=== PATIENT | female | born 1955 | race Caucasian/White ===

== ENCOUNTER 2020-05-30 08:35 | Inpatient (IN) | payer OTHER ==
[2020-05-26 15:22] VITALS: BMI 27.6
--- NOTE | 2020-05-30 08:02 | HP ---
Satellite [facility] - Chief Complaint Chief Complaint: right hip pain - Past Medical History Allergies/Adverse Reactions: Allergies Allergy/AdvReac Type Severity Reaction Status Date / Time risedronate sodium Allergy Severe Difficulty Verified 05/26/20 15:12 Breathing - Current Medications Current Medications: Home Medications Medication Instructions Recorded Amlodipine Besylate 2.5 mg PO DAILY 05/26/20 Levothyroxine [Synthroid -] 75 mcg PO DAILY 05/26/20 Pramipexole Di-HCl [Pramipexole 0.125 mg PO HS 05/26/20 Dihydrochloride] Pravastatin Sodium 10 mg PO DAILY 05/26/20 Tramadol HCl 50 mg PO HS 05/26/20 Satellite Physical Exam - Physical Examination General Appearance: Well Nourished, Well Developed, Alert & Oriented x3 ENT: Clear Lung: Normal air movement Extremities: Other (right hip- + ttp, dec rom , nvi, xrays show grade 4 hip djd) Neurological: Intact, Alert, Oriented Satellite Impression/Plan - Impression/Plan Impression: right hip djd Operative Procedure: right bonnie thr Date to be Performed: 05/30/20
[2020-05-30] MEDS: CELECOXIB 200 MG CAPSULE PO ONE ×2 (09:45→15:09)
[2020-05-30] MEDS ORDERED: MIDAZOLAM HCL 2 MG/2 ML SINGLE DOSE VIAL ONE ×3 (11:16→12:47)
[2020-05-30] MEDS ORDERED: BUPIVACAINE HCL/PF 0.5% (5 MG/ML) 30 ML VIAL IJ ONE (11:17)
[2020-05-30] MEDS ORDERED: TRANEXAMIC ACID 1000 MG/10 ML VIAL IVPUSH ONE (11:30)
[2020-05-30] MEDS ORDERED: CEFAZOLIN 2 GM in DEXTROSE 5%-WATER - 50 ML IVPB ONE (11:30)
[2020-05-30] MEDS ORDERED: DEXAMETHASONE SOD PHOSPHATE/PF 10 MG/ML SDV ONE (11:51)
[2020-05-30] MEDS ORDERED: ceFAZolin SODIUM 1 GM VIAL ONE ×2 (11:58→12:43)
[2020-05-30] MEDS ORDERED: VANCOMYCIN 1,000 MG VIAL (RESTRICTED TO ID ONLY) ONE (11:58)
[2020-05-30] MEDS ORDERED: TRANEXAMIC ACID 1000 MG/10 ML VIAL ONE (12:43)
[2020-05-30] MEDS ORDERED: ONDANSETRON 4 MG/2 ML VIAL ONE (12:46)
[2020-05-30] MEDS ORDERED: DEXAMETHASONE SOD PHOSPHATE 4 MG/1 ML VIAL ONE (12:46)
[2020-05-30] MEDS ORDERED: ONDANSETRON 4 MG/2 ML VIAL IVPUSH PRN (13:46)
[2020-05-30] MEDS ORDERED: MAG HYDROX/AL HYDROX/SIMETH 30 ML UNIT-DOSE CUP PO PRN (13:46)
[2020-05-30] MEDS ORDERED: MAGNESIUM HYDROX 2400MG/30ML ORAL SUSPENSION 30 ML CUP PO PRN (13:46)
--- NOTE | 2020-05-30 13:48 | OP ---
Operative Note - Note: Operative Date: 05/30/20 (isidoro) Pre-Operative Diagnosis: right hip djd Operation: right bonnie thr Post-Operative Diagnosis: Same as Pre-op Surgeon: Fabián Abdul Last Repairer Helper: Greg Ramos Anesthesiologist/PAINT SPRAY INSPECTOR: Rosita Bergeron Anesthesia: Spinal, Local Specimens Removed: femoral head Estimated Blood Loss (mls): 100
[2020-05-30] MEDS ORDERED: LACTATED RINGERS SOLUTION 1,000 ML IV SCH (14:00)
[2020-05-30] MEDS ORDERED: oxyCODONE HCL 5 MG TABLET PO PRN ×2 (14:01)
--- NOTE | 2020-05-30 16:06 | SPEC ---
DATE OF OPERATION: 05/30/2020 PREOPERATIVE DIAGNOSIS: Degenerative joint disease right hip. POSTOPERATIVE DIAGNOSIS: Degenerative joint disease right hip. PROCEDURE PERFORMED: Right total hip replacement with robotic-assisted navigation (MAKOplasty). SURGICAL ATTENDING: Fabián Abdul MD FINE PATCHER: KATYA Cano ANESTHESIA: Regional and spinal. CLOSURE: Meghan components for a total hip with a 52 Trident II press-fit acetabular shell, a number 7 Accolade II press-fit femoral stem, and a 36-mm ceramic standard femoral head. Number 1 Vicryl for fascia, 0 and 2-0 for subcutaneous, 3-0 V-Loc for skin, 4-0 undyed Vicryl for pin sites. ESTIMATED BLOOD LOSS: Negligible. COMPLICATIONS: None. CONDITION: To the recovery room in stable condition. DESCRIPTION OF PROCEDURE: The patient was taken to the operating room on May 30, 2020. General and regional anesthesia was administered by the anesthesiologist. IV Kefzol and TXA were administered prophylactically prior to the case. The patient was placed in the lateral decubitus position will all prominences well-padded. The right hip area was prepped and draped in the usual sterile fashion. Using 3 small stab incisions over the iliac crest, 3 threaded pins were drilled in power fashion through the 2 tables of the crest. These pins were fastened and the navigation array for the RU navigation system. Next, a 12 to 15-cm curved longitudinal incision over the posterolateral aspect of the greater trochanter was incised. Hemostasis was achieved with Bovie cautery. Sharp dissection was carried down to level of the fascia. The fascia was opened the entire length of the incision, spreading the fibers of the gluteus ashutosh in the direction of origin. A Charnley retractor was placed in this layer. Care was taken not to impale the sciatic nerve. The short external rotators were detached off the insertion of the greater trochanter and peeled off the capsule. A posterior capsulotomy was then performed. A check point was malleted into the greater trochanter and a point on the inferior pole of the patella was obtained as well. These 2 points were used to assess the preoperative offset and limb lengths of the hip. The hip was then dislocated. The femoral neck was then osteotomized down to the appropriate level as directed by the navigation device. Anterior and posterior retractors were placed, exposing the acetabulum. A circumferential labral excision was performed. A check point was malleted into the acetabulum as well. Multiple sites inside the acetabulum and around the rim were utilized to register the acetabulum with the navigation device. An excellent registration of less than 0.5 mm was obtained. The hip was then reamed with the appropriate reamer down to the appropriate depth, with the appropriate orientation and version as assessed on our preoperative plan for this patient. The reamer was removed and the acetabulum was inspected to have good bleeding surfaces throughout. The real acetabular cup was then malleted down into place, with the holes in the appropriate position, until an excellent fixation was obtained. No screws were necessary. The navigation device ensured appropriate orientation and version, with the depth as predetermined. The appropriate liner was then clipped into place. Attention was directed to the femur. The proximal femur was prepared by use a box chisel, a canal finder and serial broaches until the broach achieved excellent rigidity in the proximal femur with the appropriate version being applied. A calcar planer was used to smooth off the calcar flush with the trial components. A trial reduction with the appropriate head was done, and the hip was reduced. The hip was taken through a range of motion from full extension with external rotation to marked flexion, and was stable at 90 degrees of flexion. It was stable to marked abduction and internal rotation, with a positive hang test and negative telescoping. Limb lengths were ascertained visually as well as with the navigation device to be within the targeted range for this patient. The trial component was removed. The real component was then malleted into place. The head was cold welded to the trunnion, and the hip was reduced. Range of motion, stability and limb lengths were as described in the trial component. Then the hip was pulse antibiotic irrigated. Vancomycin powder was placed in the hip joint. The capsule was closed. The fascia was then closed as well using number 1 Vicryl interrupted suture, 0 and 2-0 subcutaneous, and 3-0 V-Loc for the skin. 4-0 undyed Vicryl was used to close the pin sites after the pins were removed. All check points were also removed. Sterile Aquacel dressing was applied. The patient was awakened from anesthesia and transferred into the supine position. Bilateral SCDs and an abduction pillow were placed. X-rays revealed excellent position of the components. The patient was transferred to the recovery room in stable condition, with no complications. Estimated blood loss was negligible. Vidal [id number]
[2020-05-30] MEDS: ACETAMINOPHEN 325 MG TABLET (FP) PO SCH ×3 (17:02→21:33)
[2020-05-30] MEDS: CEFAZOLIN 2 GM/D5W 2 GM/50 ML ML IVPB SCH (19:58)
[2020-05-30] MEDS: traMADol HCL 50 MG TABLET PO PRN (19:58)
[2020-05-30] MEDS: PRAMIPEXOLE DIHYDROCHLORIDE 0.125 MG TABLET PO SCH (21:31)
[2020-05-30] MEDS: ATORVASTATIN CA 10 MG TABLET (FP) PO SCH (21:31)
[2020-05-30] MEDS: SENNOSIDES/DOCUSATE COMBO (SENNA PLUS) TABLET (UD) PO SCH (21:32)
[2020-05-31] MEDS: CEFAZOLIN 2 GM/D5W 2 GM/50 ML ML IVPB SCH (04:22)
[2020-05-31] MEDS: ACETAMINOPHEN 325 MG TABLET (FP) PO SCH ×4 (04:22→21:16)
[2020-05-31] MEDS: LEVOTHYROXINE NA 75 MCG TABLET (FP) PO SCH (06:21)
[2020-05-31 06:55] LABS: HEMATOCRIT 40.1 % (32.4-45.2); HEMOGLOBIN 13.1 GM/dl (10.7-15.3); MCH 30.1 pg (25.7-33.7); MCHC 32.7 g/dl (32.0-36.0); MEAN PLT VOLUME 8.2 fl (7.5-11.1); PLATELET COUNT 295 K/MM3 (134-434); RBC 4.36 M/mm3 (3.60-5.2); RDW 14.2 % (11.6-15.6); WHITE BLOOD COUNT 16.4 K/mm3 (4.0-10.8)
[2020-05-31] MEDS: traMADol HCL 50 MG TABLET PO PRN ×2 (08:31→15:47)
[2020-05-31] MEDS: ASPIRIN 325 MG TABLET PO SCH (08:31)
[2020-05-31] MEDS: amLODIPine BESYLATE 2.5 MG TABLET (FP) PO SCH (09:20)
[2020-05-31] MEDS: PANTOPRAZOLE 40 MG TABLET PO SCH (09:21)
[2020-05-31] MEDS: SENNOSIDES/DOCUSATE COMBO (SENNA PLUS) TABLET (UD) PO SCH ×2 (09:21→21:16)
[2020-05-31] MEDS: MULTIVITAMINS (DAILY MVI) TABLET (FP) PO SCH (09:21)
[2020-05-31] MEDS ORDERED: PATIENT'S OWN MEDICATION (NON-FORMULARY) (Pravastatin Sodium [Pravastatin Sodium] 10 MG) PO SCH (10:00)
--- NOTE | 2020-05-31 10:20 | PN ---
Progress Note (short form) - Note Progress Note: Anesthesia postop note 65 y/o F s/p spinal anesthesia/ nerve block for bonnie hip repacement POD#1, vss, aaox3, pain fairly well controlled, undergoing PT. No anesthesia complications.
--- NOTE | 2020-05-31 11:26 | PN ---
Progress Note (short form) - Note Progress Note: Ortho Pt seen and examined s/p right bonnie thr pod #1 Selected Entries 05/31/20 08:51 Temperature 97.8 F Pulse Rate 85 Respiratory 18 Rate Blood Pressure 129/61 Laboratory Tests 05/31/20 06:46 WBC 16.4 H Hgb 13.1 Hct 40.1 Plt Count 295 dressing c/d/i, calf soft, nt nvi a/p PT hip precautions dvt ppx pain control d/c home tomorrow if stable
[2020-05-31] MEDS: PRAMIPEXOLE DIHYDROCHLORIDE 0.125 MG TABLET PO SCH (21:15)
[2020-05-31] MEDS: ATORVASTATIN CA 10 MG TABLET (FP) PO SCH (21:15)
[2020-05-31] MEDS ORDERED: LOCK ITEM NR ONE (22:07)
[2020-06-01] MEDS: ACETAMINOPHEN 325 MG TABLET (FP) PO SCH ×2 (04:00→09:07)
[2020-06-01] MEDS: traMADol HCL 50 MG TABLET PO PRN (06:14)
[2020-06-01] MEDS: LEVOTHYROXINE NA 75 MCG TABLET (FP) PO SCH (06:15)
[2020-06-01] MEDS ORDERED: LOCK ITEM NR ONE (06:25)
--- NOTE | 2020-06-01 08:10 | PN ---
Progress Note (short form) - Note Progress Note: Ortho Pt seen and examined s/p right bonnie thr pod #2 Selected Entries 06/01/20 06:00 Temperature 99.0 F Pulse Rate 81 Respiratory 18 Rate Blood Pressure 113/50 L dressing c/d/i, calf soft, nt nvi a/p PT hip precautions dvt ppx pain control d/c home today f/u in 1 week
--- NOTE | 2020-06-01 08:11 | DS ---
Physical Examination Vital Signs: Vital Signs Temperature 99.0 F 06/01/20 06:00 Pulse Rate 81 06/01/20 06:00 Respiratory Rate 18 06/01/20 06:00 Blood Pressure 113/50 L 06/01/20 06:00 O2 Sat by Pulse Oximetry (%) 96 06/01/20 06:00 Discharge Summary Problems reviewed: Yes Reason For Visit: RT TOTAL HIP REPLACEMENT Procedures: Principal: right bonnie thr Hospital Course: admitted for elective right bonnie thr, post-op per protocol, stable for d/c Condition: Good - Instructions Diet, Activity, Other Instructions: Post-op Instructions-Total Hip Replacement Call the office for a follow-up appointment in 1 week - [phone] Aspirin 325mg daily for 6 weeks. Pain medication was sent into your pharmacy. Apply Graduated Compression Stockings (TEDs) to both lower extremities- remove daily for hygiene ONLY Apply Sequential Compression Device (SCDs) to both Lower extremities remove for PT and hygiene ONLY Apply cold packs to affected area for 15 minutes every 2 hours. Physical Therapist will come to your home for the first 5 days. You will be set up with outpatient PT at your first post-operative visit. Patient may ambulate as tolerated-encourage self care (at least every 2-3 hours while awake) with walker or cane Maintain Aquacel (waterproof) dressing to operative wound (will be removed by surgeon at first office visit) Shower with Aquacel dressing in place-if Aquacel integrity compromised, remove and apply dry sterile dressing and notify Orthopedist. DO NOT SHOWER unless Orthopedists approves without Aquacel dressing CONTACT THE OFFICE FOR ANY CHANGE IN YOUR CONDITION (for example-fever greater than 102 degrees, excessive bleeding from operative site, purulent drainage, severe swelling or pain) GO TO THE EMERGENCY ROOM IF THERE IS A MEDICAL EMERGENCY Hip Precautions: * Keep a rolled towel under affected heel while in bed or chair (to keep knee in extension) * Dependent upon approach: * Posterior - do not cross legs; do not sit on low chairs or toilets. * If you have any questions, please do not hesitate to call the office - [phone]. Referrals: Fabián Abdul MD [Staff Physician] - Disposition: VNS/HOME HEALTH CARE - Home Medications Comprehensive Discharge Medication List: Ambulatory Orders Amlodipine Besylate 2.5 mg PO DAILY 05/26/20 Levothyroxine [Synthroid -] 75 mcg PO DAILY 05/26/20 Pramipexole Di-HCl [Pramipexole Dihydrochloride] 0.125 mg PO HS 05/26/20 Pravastatin Sodium 10 mg PO DAILY 05/26/20 Tramadol HCl 50 mg PO HS PRN 05/26/20
[2020-06-01 08:35] LABS: HEMATOCRIT 36.7 % (32.4-45.2); HEMOGLOBIN 12.3 GM/dl (10.7-15.3); MCH 30.4 pg (25.7-33.7); MCHC 33.4 g/dl (32.0-36.0); MEAN CELL VOLUME 90.9 fl (80-96); MEAN PLT VOLUME 9.1 fl (7.5-11.1); PLATELET COUNT 245 K/MM3 (134-434); RBC 4.04 M/mm3 (3.60-5.2); RDW 14.3 % (11.6-15.6)
[2020-06-01 09:06] VITALS: BP 115/52; PULSE 84; TEMP 97.9
[2020-06-01] MEDS: MULTIVITAMINS (DAILY MVI) TABLET (FP) PO SCH (09:06)
[2020-06-01] MEDS: amLODIPine BESYLATE 2.5 MG TABLET (FP) PO SCH (09:06)
[2020-06-01] MEDS: PANTOPRAZOLE 40 MG TABLET PO SCH (09:06)
[2020-06-01] MEDS: ASPIRIN 325 MG TABLET PO SCH (09:06)
[2020-06-01] MEDS: SENNOSIDES/DOCUSATE COMBO (SENNA PLUS) TABLET (UD) PO SCH (09:07)
--- NOTE | 2020-06-02 16:52 | PATH ---
Surgical Pathology Report Patient Name: REEMA JOSE Med. Rec. #: [id number] /Age/Gender: 1955 (Age: 65) / F Account: [id number] Location: [facility] MED-SURG Taken: 05/30/2020 Received: 05/30/2020 Reported: 06/02/2020 Physicians: Fabián Abdul M.D. Specimen(s) Received [facility] FEMORAL HEAD Clinical History Right hip osteoarthritis Final Diagnosis FEMORAL HEAD, RIGHT, TOTAL HIP REPLACEMENT: DEGENERATIVE JOINT DISEASE. Electronically Signed Susan Whitman M.D. Gross Description Received in formalin, labeled "right femoral head," is a 4.5 x 4.5 x 4.0 cm. femoral head with a 0.7. The margin of resection is smooth. There is a 2.7 cm greatest dimension area of eburnation present. The remaining articular surface is glover-yellow and focally granular. The underlying trabecular bone is yellow and hard. A product support sales representative section is submitted in one cassette, following decalcification. /05/31/2020 [facility]05/31/2020
== END 2020-06-01 11:55 | disposition home health service (06) | DRG 470 ==
LOC: FM/S 08:35
PROVIDERS: ADMIT Orthopaedic Surgery; ATTEND Orthopaedic Surgery
PROC: 8E0W0CZ Robotic Assisted Procedure of Trunk Region, Open Approach (ICD-10-PCS; 2020-05-30)
PROC: 0SR90JA Replacement of Right Hip Joint with Synthetic Substitute, Uncemented, Open Approach (ICD-10-PCS; principal; 2020-05-30 12:49)
DX: M16.11 Unilateral primary osteoarthritis, right hip (principal)
CPT/HCPCS: 36415; 73502-TC-RT-FY; 85027; 88305-TC; 88311-TC; 94760; 97010-GP; 97116-GP; 97162-GP; U0003